=== PATIENT | female | born 1970 | race Caucasian/White ===

== ENCOUNTER 2016-10-30 14:12 | Inpatient (IN) | payer OTHER ==
[2016-10-30] MEDS ORDERED: ONDANSETRON 4 MG/2 ML VIAL IVP STA ×2 (14:28→15:27)
[2016-10-30] MEDS ORDERED: SODIUM CHLORIDE 0.9% 1,000 ML IV STA (14:28)
[2016-10-30 14:47] LABS: Basophils % (A) 0 %; CH 34.3; Eosinophils # (A) 0.1 k/uL (0-0.7); Eosinophils % (A) 1 %; HCT 50.7 % (34.0-46.0); HDW 2.48; HGB 17.2 gm/dL (11.4-16.0); Luc # (Auto) 0.09; Luc % (Auto) 1; Lymphocytes % (A) 26 %; MCH 33.4 pg (25.0-35.0); MCHC 33.9 g/dL (31.0-37.0); MCV 98.5 fL (80.0-100.0); Monocytes # (A) 0.3 k/uL (0-1.0); Monocytes % (A) 4 %; Neutrophils # (A) 5.2 k/uL (1.3-7.7); Neutrophils % (A) 68 %; RBC 5.15 m/uL (3.80-5.40); RDW 13.8 % (11.5-15.5); WBC 7.7 k/uL (3.8-10.6)
[2016-10-30 14:57] LABS: ALT 22 U/L (9-52); AST 19 U/L (14-36); Alkaline Phosphatase 90 U/L (38-126); Anion Gap 14 mmol/L; Blood Urea Nitrogen 9 mg/dL (7-17); Calcium 9.8 mg/dL (8.4-10.2); Carbon Dioxide 19 mmol/L (22-30); Chloride 106 mmol/L (98-107); Glucose 106 mg/dL (74-99); Non-African American GFR(MDRD) >60 (>60 ml/min/1.73 sqM); Potassium 3.8 mmol/L (3.5-5.1); Sodium 139 mmol/L (137-145); Total Bilirubin 0.8 mg/dL (0.2-1.3)
--- NOTE | 2016-10-30 15:45 | ED ---
General Adult HPI - General Chief complaint: Nausea/Vomiting/Diarrhea Stated complaint: Weakness Time Seen by Provider: 10/30/16 14:19 Source: patient, RN notes reviewed Mode of arrival: wheelchair Limitations: no limitations - History of Present Illness Initial comments: 45-year-old female presents with a 2 day history of nausea and vomiting. Patient reports 3 episodes of nonbloody emesis yesterday, patient states she was well after these episodes. Then she had an additional 3-5 episodes of nonbloody vomiting today with significant dry heaving. She denies fever or chills. Denies abdominal pain. Denies chest pain or shortness of breath. Denies any known sick contacts. Denies any suspicious food ingestion. She denies alcohol consumption. She admits to occasional marijuana use. She is not currently on any medication. - Related Data Home Medications Medication Instructions Recorded Confirmed Cholecalciferol [Vitamin D3] 1,000 unit PO DAILY 10/30/16 10/30/16 Magnesium Oxide [Mag-Ox] 400 mg PO DAILY 10/30/16 10/30/16 Allergies Allergy/AdvReac Type Severity Reaction Status Date / Time No Known Allergies Allergy Verified 10/30/16 14:40 Review of Systems ROS Statement: Those systems with pertinent positive or pertinent negative responses have been documented in the HPI. ROS Other: All systems not noted in ROS Statement are negative. Constitutional: Denies: fever, chills Respiratory: Denies: cough Cardiovascular: Denies: chest pain Gastrointestinal: Reports: nausea, vomiting. Denies: abdominal pain, diarrhea Past Medical History Past Medical History: No Reported History History of Any Multi-Drug Resistant Organisms: None Reported Past Surgical History: Section Additional Past Surgical History / Comment(s): c section x 3 Past Psychological History: No Psychological Hx Reported Smoking Status: Current every day smoker Past Alcohol Use History: None Reported Past Drug Use History: Marijuana General Exam Limitations: no limitations General appearance: alert, in distress Head exam: Present: atraumatic, normocephalic Eye exam: Present: PERRL, EOMI, other ENT exam: Present: other (Dentition) Neck exam: Present: full ROM. Absent: meningismus Respiratory exam: Present: normal lung sounds bilaterally. Absent: respiratory distress Cardiovascular Exam: Present: normal rhythm, bradycardia GI/Abdominal exam: Present: soft, tenderness (Minimal right upper quadrant tenderness), normal bowel sounds. Absent: distended, guarding, rebound Rectal exam: Present: deferred Extremities exam: Present: normal inspection Neurological exam: Present: alert, oriented X3 Psychiatric exam: Present: normal affect, normal mood Skin exam: Present: warm, diaphoretic Course Vital Signs 10/30/16 10/30/16 14:15 15:47 Temperature 96.9 F L Pulse Rate 90 65 Respiratory 18 18 Rate Blood Pressure 167/85 181/84 O2 Sat by Pulse 98 97 Oximetry - Reevaluation(s) Reevaluation #1: 10/30/16 17:11 Patient is reevaluated multiple times on the emergency department. She has persistent nausea and vomiting. She is given multiple doses of IV antiemetics. Reevaluation #2: 10/30/16 17:12 Ultrasound of the abdomen is reviewed and shows mild thickening of the gallbladder wall with cholelithiasis. There is no pericholecystic fluid. Interpretation is significant for possible acute cholecystitis. EKG Findings - EKG Comments: EKG Findings:: EKG obtained at 1455 shows sinus bradycardia with sinus arrhythmia. Ventricular rate of 55, purulent 60, QRS duration 78, QTC is 451, there is inverted T waves in V2 and V3. No ST segment elevation or depression. Medical Decision Making - Medical Decision Making For social female with no significant past medical history presenting with a 2 day history of nausea and vomiting. On examination patient does have minimal tenderness to palpation in the right upper quadrant, no rebound or guarding. Patient has significant nausea vomiting while in the emergency department and receives multiple doses of antiemetics. Ultrasound is concerning for acute cholecystitis. Case is discussed with general surgery who accepts the admission. Patient will be given IV antibiotics,, npo, and IV fluids. She will likely be scheduled for cholecystectomy tomorrow. Laboratory studies revealed mild elevation of lactic acidosis of 2.4. AST and LTR within normal limits with blood cell count is not elevated at 7.7. All of the labs are unremarkable. Coagulation studies and type and screen are pending at the time of this dictation. Abdominal x-ray is also pending at the time of this dictation. Diagnosis: Acute cholecystitis - Lab Data Result diagrams: 10/30/16 14:25 10/30/16 14:25 Lab Results 06/28/17 06/28/17 06/28/17 Range/Units 14:25 14:25 14:25 WBC 7.7 (3.8-10.6) k/uL RBC 5.15 (3.80-5.40) m/uL Hgb 17.2 H (11.4-16.0) gm/dL Hct 50.7 H (34.0-46.0) % MCV 98.5 (80.0-100.0) fL MCH 33.4 (25.0-35.0) pg MCHC 33.9 (31.0-37.0) g/dL RDW 13.8 (11.5-15.5) % Plt Count 246 (150-450) k/uL Neutrophils % 68 % Lymphocytes % 26 % Monocytes % 4 % Eosinophils % 1 % Basophils % 0 % Neutrophils # 5.2 (1.3-7.7) k/uL Lymphocytes # 2.0 (1.0-4.8) k/uL Monocytes # 0.3 (0-1.0) k/uL Eosinophils # 0.1 (0-0.7) k/uL Basophils # 0.0 (0-0.2) k/uL Sodium 139 (137-145) mmol/L Potassium 3.8 (3.5-5.1) mmol/L Chloride 106 (98-107) mmol/L Carbon Dioxide 19 L (22-30) mmol/L Anion Gap 14 mmol/L BUN 9 (7-17) mg/dL Creatinine 0.98 (0.52-1.04) mg/dL Est GFR (MDRD) Af Amer >60 (>60 ml/min/1.73 sqM) Est GFR (MDRD) Non-Af >60 (>60 ml/min/1.73 sqM) Glucose 106 H (74-99) mg/dL Plasma Lactic Acid Efrain (0.7-2.0) mmol/L Calcium 9.8 (8.4-10.2) mg/dL Magnesium 2.0 (1.6-2.3) mg/dL Total Bilirubin 0.8 (0.2-1.3) mg/dL AST 19 (14-36) U/L ALT 22 (9-52) U/L Alkaline Phosphatase 90 (38-126) U/L Troponin I <0.012 (0.000-0.034) ng/mL Total Protein 8.0 (6.3-8.2) g/dL Albumin 4.9 (3.5-5.0) g/dL Lipase 86 (23-300) U/L 10/30/16 Range/Units 14:25 WBC (3.8-10.6) k/uL RBC (3.80-5.40) m/uL Hgb (11.4-16.0) gm/dL Hct (34.0-46.0) % MCV (80.0-100.0) fL MCH (25.0-35.0) pg MCHC (31.0-37.0) g/dL RDW (11.5-15.5) % Plt Count (150-450) k/uL Neutrophils % % Lymphocytes % % Monocytes % % Eosinophils % % Basophils % % Neutrophils # (1.3-7.7) k/uL Lymphocytes # (1.0-4.8) k/uL Monocytes # (0-1.0) k/uL Eosinophils # (0-0.7) k/uL Basophils # (0-0.2) k/uL Sodium (137-145) mmol/L Potassium (3.5-5.1) mmol/L Chloride (98-107) mmol/L Carbon Dioxide (22-30) mmol/L Anion Gap mmol/L BUN (7-17) mg/dL Creatinine (0.52-1.04) mg/dL Est GFR (MDRD) Af Amer (>60 ml/min/1.73 sqM) Est GFR (MDRD) Non-Af (>60 ml/min/1.73 sqM) Glucose (74-99) mg/dL Plasma Lactic Acid Efrain 2.4 H* (0.7-2.0) mmol/L Calcium (8.4-10.2) mg/dL Magnesium (1.6-2.3) mg/dL Total Bilirubin (0.2-1.3) mg/dL AST (14-36) U/L ALT (9-52) U/L Alkaline Phosphatase (38-126) U/L Troponin I (0.000-0.034) ng/mL Total Protein (6.3-8.2) g/dL Albumin (3.5-5.0) g/dL Lipase (23-300) U/L Disposition Clinical Impression: Cholecystitis with cholelithiasis Disposition: ADMITTED IP TO THIS [facility] Condition: Stable Referrals: Jan Cheek MD [Primary Care Provider] - 1-2 days Decision to Admit Reason: Admit from EC Decision Date: 10/30/16 Decision Time: 17:00
--- NOTE | 2016-10-30 16:53 | US ---
EXAMINATION TYPE: US abdomen complete DATE OF EXAM: 10/30/2016 COMPARISON: NONE CLINICAL HISTORY: Pain. EXAM MEASUREMENTS: Liver Length: 14.2 cm Gallbladder Wall: 0.3 cm CBD: 0.7 cm Spleen: 10.0 cm Right Kidney: 8.5 x 3.2 x 4.8 cm Left Kidney: 8.8 x 4.2 x 5.0 cm Pancreas: not well delineated Liver: 3 small hemangiomas seen: lt lobe 1.2 x 0.9 x 1.0 cm; right lobe 1.4 x 1.2 x 1.7 cm and possi ble third at ligamentum teres ( 1.9 cm) Gallbladder:stones, air in gb wall Evidence for sonographic Joiner's sign: Unable to determine, patient has intractible vomiting and hurts all over CBD: dilated Spleen: wnl Right Kidney: No hydronephrosis or masses seen Left Kidney: No hydronephrosis or masses seen Upper IVC: wnl Abd Aorta: wnl The liver demonstrates several hyperechoic lesions which may reflect hemangiomas. The intrahepatic po rtion of the IVC and proximal abdominal aorta are within normal limits. There is evidence of cholelit hiasis with a mild bladder wall thickening. Suggestion of intramural air. Correlate for acute cholecy stitis. Common bile duct is mildly dilated. The visualized portions of the pancreas are homogenous. The spleen is unremarkable. Kidneys are symmetric and free of hydronephrosis. No renal lesions are seen. IMPRESSION: 1. I cannot exclude acute cholecystitis. 2. Hepatic hemangiomas.
[2016-10-30] MEDS ORDERED: metroNIDAZOLE-NS PMX 500 MG in SALINE 1 100ML.BAG IVPB STA (16:57)
[2016-10-30] MEDS ORDERED: METOCLOPRAMIDE 5 MG/ML 2 ML VIAL IVP STA (16:58)
[2016-10-30] MEDS ORDERED: HYDROmorphone 1 MG/ML 1 ML SYRINGE IVP STA (16:58)
[2016-10-30] MEDS ORDERED: LACTATED RINGERS 1,000 ML IV ONE (16:59)
[2016-10-30] MEDS ORDERED: HYDROmorphone 1 MG/ML 1 ML SYRINGE IV PRN (17:17)
[2016-10-30] MEDS ORDERED: NALOXONE 0.4 MG/ML 1 ML VIAL IV PRN (17:17)
--- NOTE | 2016-10-30 18:27 | XR ---
EXAMINATION TYPE: XR abdomen complete w decub DATE OF EXAM: 10/30/2016 COMPARISON: EXAMINATION TYPE: XR abdomen complete w decub DATE OF EXAM: 10/30/2016 COMPARISON: NONE HISTORY: Vomiting TECHNIQUE: 4 views FINDINGS: There is no sign of intestinal obstruction or pneumoperitoneum. Fecal pattern is normal. Th ere is no evidence of a mass. There is a phlebolith in the pelvis on the left side. There are no path ologic calcifications over the kidneys. Lung bases are clear. IMPRESSION: Nonacute abdomen. HISTORY: TECHNIQUE: Supine, upright, and left side down lateral decubitus views of the abdomen are obtained. FINDINGS: There is no evidence for pneumoperitoneum. The bowel gas pattern is unremarkable as there is air throughout nondilated small and large bowel. No sizeable air fluid levels. No mass effects are seen. No unusual calcifications. IMPRESSION: Unremarkable study
[2016-10-30 18:57] VITALS: BMI 24.4
[2016-10-30 19:40] LABS: Amorphous Sediment,Urine Rare /hpf; Appearance,Urine Turbid (Clear); Bacteria,Urine Moderate /hpf; Bilirubin,Urine Negative (Negative); Glucose,Urine (UA) 1+ (Negative); Leukocyte Esterase,Urine Negative (Negative); Mucus,Urine Rare /hpf; Nitrite,Urine Negative (Negative); Particle Count 30703; Protein,Urine 1+ (Negative); RBC,Urine 5 /hpf (0-5); Specific Gravity,Urine 1.013 (1.001-1.035); Squamous Epithelial Cell,Urine 2 /hpf (0-4); UA Billing (MACRO vs. MICRO) MICRO; Urobilinogen,Urine <2.0 mg/dL (<2.0); WBC,Urine 4 /hpf (0-5)
[2016-10-30 19:47] LABS: Ketones,Urine 4+ (Negative)
[2016-10-30] MEDS: ONDANSETRON 4 MG/2 ML VIAL IVP PRN (20:26)
[2016-10-30 20:52] LABS: INR 1.1 (<1.1); Partial Thromboplastin Time 23.2 sec (22.0-30.0); Prothrombin Time 11.2 sec (9.0-12.0)
[2016-10-31] MEDS: METOCLOPRAMIDE 5 MG/ML 2 ML VIAL IVP PRN ×2 (01:27→17:29)
[2016-10-31] MEDS: ONDANSETRON 4 MG/2 ML VIAL IVP PRN ×3 (04:07→20:47)
[2016-10-31 06:59] LABS: Basophils % (A) 0 %; CH 33.8; CHCM 34.6; Eosinophils % (A) 0 %; HCT 47.3 % (34.0-46.0); HDW 2.57; HGB 16.6 gm/dL (11.4-16.0); Luc # (Auto) 0.06; Luc % (Auto) 1; Lymphocytes # (A) 0.9 k/uL (1.0-4.8); Lymphocytes % (A) 8 %; MCH 34.4 pg (25.0-35.0); MCHC 35.2 g/dL (31.0-37.0); MCV 97.9 fL (80.0-100.0); Monocytes # (A) 0.5 k/uL (0-1.0); Monocytes % (A) 5 %; Neutrophils % (A) 87 %; RBC 4.83 m/uL (3.80-5.40); RDW 13.6 % (11.5-15.5); WBC 11.5 k/uL (3.8-10.6); WBC (Perox) 11.93
[2016-10-31 07:23] LABS: ALT 22 U/L (9-52); AST 18 U/L (14-36); Alkaline Phosphatase 82 U/L (38-126); Anion Gap 17 mmol/L; Blood Urea Nitrogen 11 mg/dL (7-17); Calcium 9.8 mg/dL (8.4-10.2); Carbon Dioxide 18 mmol/L (22-30); Chloride 105 mmol/L (98-107); Glucose 131 mg/dL (74-99); Non-African American GFR(MDRD) 58 (>60 ml/min/1.73 sqM); Potassium 4.2 mmol/L (3.5-5.1); Sodium 140 mmol/L (137-145); Total Bilirubin 0.8 mg/dL (0.2-1.3); Total Protein 7.7 g/dL (6.3-8.2)
[2016-10-31] MEDS: PANTOPRAZOLE 40 MG/10 ML VIAL IV SCH (08:17)
--- NOTE | 2016-10-31 08:56 | P.GSHP ---
History of Present Illness H&P Date: 10/31/16 Chief Complaint: Abdominal pain, nausea, vomiting The patient began having problems with nausea and vomiting came into the emergency department And workup showed evidence of gallbladder disease. She has had episodes of this in the Past however not as severe. No fevers or chills. No Jaundice or tea-colored urine. No blood in the stools or dark tarry stools - Review of Systems All systems: negative Past Medical History Past Medical History: No Reported History History of Any Multi-Drug Resistant Organisms: None Reported Past Surgical History: Section Additional Past Surgical History / Comment(s): c section x 3 Past Psychological History: No Psychological Hx Reported Smoking Status: Current every day smoker Past Alcohol Use History: None Reported Past Drug Use History: Marijuana - Past Family History Father Family Medical History: Hypertension Mother Additional Family Medical History / Comment(s): at age 26 brain aneurism Medications and Allergies Home Medications Medication Instructions Recorded Confirmed Type Cholecalciferol [Vitamin D3] 1,000 unit PO DAILY 10/30/16 10/30/16 History Magnesium Oxide [Mag-Ox] 400 mg PO DAILY 10/30/16 10/30/16 History Allergies Allergy/AdvReac Type Severity Reaction Status Date / Time No Known Allergies Allergy Verified 10/30/16 14:40 Surgical - Exam Osteopathic Statement: *. No significant issues noted on an osteopathic structural exam other than those noted in the History and Physical/Consult. Vital Signs Pulse Resp BP Pulse Ox 90 18 167/85 98 10/30/16 14:15 10/30/16 14:15 10/30/16 14:15 10/30/16 14:15 - General well developed, well nourished, no distress - Eyes normal ocular movement - ENT normal pinna, normal nares - Neck trachea midline - Respiratory normal expansion, clear to auscultation - Cardiovascular Rhythm: regular Abnormal Heart Sounds: no systolic murmur - Abdomen Abdomen: soft, tender (Mild right upper quadrant), no organomegaly, surgical scars (Lower midline), no rigid, no rebound - Psychiatric oriented to time, oriented to person, oriented to place, speech is normal, memory intact Results - Labs 10/31/16 06:17 10/31/16 06:17 Abnormal Lab Results - Last 24 Hours (Table) 10/30/16 10/30/16 10/30/16 Range/Units 14:25 14:25 14:25 WBC (3.8-10.6) k/uL Hgb 17.2 H (11.4-16.0) gm/dL Hct 50.7 H (34.0-46.0) % Neutrophils # (1.3-7.7) k/uL Lymphocytes # (1.0-4.8) k/uL Carbon Dioxide 19 L (22-30) mmol/L Glucose 106 H (74-99) mg/dL Plasma Lactic Acid Efrain 2.4 H* (0.7-2.0) mmol/L Urine Appearance (Clear) Urine Protein (Negative) Urine Glucose (UA) (Negative) Urine Ketones (Negative) Urine Blood (Negative) Amorphous Sediment (None) /hpf Urine Bacteria (None) /hpf Urine Mucus (None) /hpf 10/30/16 10/31/16 10/31/16 Range/Units 18:41 06:17 06:17 WBC 11.5 H (3.8-10.6) k/uL Hgb 16.6 H (11.4-16.0) gm/dL Hct 47.3 H (34.0-46.0) % Neutrophils # 10.0 H (1.3-7.7) k/uL Lymphocytes # 0.9 L (1.0-4.8) k/uL Carbon Dioxide 18 L (22-30) mmol/L Glucose 131 H (74-99) mg/dL Plasma Lactic Acid Efrain (0.7-2.0) mmol/L Urine Appearance Turbid H (Clear) Urine Protein 1+ H (Negative) Urine Glucose (UA) 1+ H (Negative) Urine Ketones 4+ H (Negative) Urine Blood Small H (Negative) Amorphous Sediment Rare H (None) /hpf Urine Bacteria Moderate H (None) /hpf Urine Mucus Rare H (None) /hpf Diabetes panel 10/30/16 10/31/16 Range/Units 14:25 06:17 Sodium 139 140 (137-145) mmol/L Potassium 3.8 4.2 (3.5-5.1) mmol/L Chloride 106 105 (98-107) mmol/L Carbon Dioxide 19 L 18 L (22-30) mmol/L BUN 9 11 (7-17) mg/dL Creatinine 0.98 1.02 (0.52-1.04) mg/dL Glucose 106 H 131 H (74-99) mg/dL Calcium 9.8 9.8 (8.4-10.2) mg/dL AST 19 18 (14-36) U/L ALT 22 22 (9-52) U/L Alkaline Phosphatase 90 82 (38-126) U/L Total Protein 8.0 7.7 (6.3-8.2) g/dL Albumin 4.9 4.7 (3.5-5.0) g/dL Calcium panel 10/30/16 10/31/16 Range/Units 14:25 06:17 Calcium 9.8 9.8 (8.4-10.2) mg/dL Albumin 4.9 4.7 (3.5-5.0) g/dL Pituitary panel 10/30/16 10/31/16 Range/Units 14:25 06:17 Sodium 139 140 (137-145) mmol/L Potassium 3.8 4.2 (3.5-5.1) mmol/L Chloride 106 105 (98-107) mmol/L Carbon Dioxide 19 L 18 L (22-30) mmol/L BUN 9 11 (7-17) mg/dL Creatinine 0.98 1.02 (0.52-1.04) mg/dL Glucose 106 H 131 H (74-99) mg/dL Calcium 9.8 9.8 (8.4-10.2) mg/dL Adrenal panel 10/30/16 10/31/16 Range/Units 14:25 06:17 Sodium 139 140 (137-145) mmol/L Potassium 3.8 4.2 (3.5-5.1) mmol/L Chloride 106 105 (98-107) mmol/L Carbon Dioxide 19 L 18 L (22-30) mmol/L BUN 9 11 (7-17) mg/dL Creatinine 0.98 1.02 (0.52-1.04) mg/dL Glucose 106 H 131 H (74-99) mg/dL Calcium 9.8 9.8 (8.4-10.2) mg/dL Total Bilirubin 0.8 0.8 (0.2-1.3) mg/dL AST 19 18 (14-36) U/L ALT 22 22 (9-52) U/L Alkaline Phosphatase 90 82 (38-126) U/L Total Protein 8.0 7.7 (6.3-8.2) g/dL Albumin 4.9 4.7 (3.5-5.0) g/dL - Imaging US - abdomen: report reviewed Assessment and Plan (1) Cholecystitis with cholelithiasis Status: Acute Plan: Plan is laparoscopic cholecystectomy possible open. The procedure, risks, complications were discussed with her. Questions were encouraged and answered. We'll proceed with laparoscopic Cholecystectomy this afternoon.
[2016-10-31] MEDS ORDERED: IV FLUID CONTINUATION 850 ML IV ONE (12:32)
[2016-10-31] MEDS ORDERED: SUCCINYLCHOLINE CHLORIDE 100 MG/5 ML SYR IV ONE (13:47)
[2016-10-31] MEDS ORDERED: MIDAZOLAM 2 MG/2 ML VIAL ONE (13:47)
[2016-10-31] MEDS ORDERED: GLYCOPYRROLATE 0.2 MG/ML 2 ML VIAL ONE (13:47)
[2016-10-31] MEDS ORDERED: LABETALOL 5 MG/ML VIAL MDV ONE (13:47)
[2016-10-31] MEDS ORDERED: PROPOFOL 10 MG/ML 20 ML VIAL IV ONE (13:47)
[2016-10-31] MEDS ORDERED: fentaNYL (PF) 50 MCG/ML 2 ML AMP ONE (13:47)
[2016-10-31] MEDS ORDERED: NEOSTIGMINE 1 MG/ML 10 ML VIAL ONE (13:47)
[2016-10-31] MEDS ORDERED: KETOROLAC 30 MG/ML 1 ML VIAL ONE (13:47)
[2016-10-31] MEDS ORDERED: ROCURONIUM BROMIDE 10 MG/ML 10 ML VIAL IV ONE (13:47)
[2016-10-31] MEDS ORDERED: LIDOCAINE 1% INJ 10MG/ML (20 ML MDV) ONE (13:47)
[2016-10-31] MEDS ORDERED: BUPIVACAIN-EPI 0.5%-1:200,000 30 ML VIAL SQ ONE (14:09)
[2016-10-31] MEDS ORDERED: HYDROcodone/APAP 5-325MG 1 EACH TAB PO PRN (14:35)
--- NOTE | 2016-10-31 14:35 | P.OP ---
Date of Procedure: 10/31/16 Preoperative Diagnosis: cholecystitis with cholelithiasis Postoperative Diagnosis: Same Procedure(s) Performed: Laparoscopic cholecystectomy Implants: Anesthesia: JUANIS Surgeon: Shirlene Bonilla Estimated Blood Loss (ml): 5 Pathology: other (Gallbladder) Condition: stable Disposition: PACU Indications for Procedure: The patient presented with acute abdominal pain. Ultrasound showed cholelithiasis with possible gallbladder wall thickening or intramural air. Operative Findings: No evidence of acute cholecystitis Description of Procedure: The patient is taken to the operative suite where she is prepped and draped in the usual sterile manner under a general endotracheal anesthetic. An infraumbilical incision is made. The fascia is grasped and incised. The peritoneum is grasped and incised. A finger sweep was carried out. There is some filmy adhesions of the omentum to the posterior peritoneum. Trocar is then inserted. Pneumoperitoneum was established with CO2 gas. Sites are chosen for accessory trochars needs are placed through small skin incisions. The abdominal and pelvic contents were examined with findings as described above. The fundus of the gallbladder is grasped and retracted superiorly. Lety's pouch is grasped and retracted laterally. The cystic artery and cystic duct are dissected free. They're triply clipped and cut. The gallbladder is dissected free from the liver bed. Small bleeding points were controlled with electrocautery. The gallbladder is removed through the umbilical port site. The liver bed is reexamined and noted to be hemostatic. The pneumoperitoneum was released, the trochars are removed. The fascia at the umbilicus was closed with 0 Vicryl. The skin incisions were closed with 4-0 Vicryl in a subcuticular manner. Steri-Strips and dressings were applied. She tolerated the procedure without difficulty and was taken recovery room in satisfactory condition. According to or personnel all counts are correct.
[2016-10-31] MEDS: KETOROLAC 30 MG/ML 1 ML VIAL IVP SCH ×2 (17:14→20:46)
[2016-11-01] MEDS: METOCLOPRAMIDE 5 MG/ML 2 ML VIAL IVP PRN (01:03)
[2016-11-01] MEDS: KETOROLAC 30 MG/ML 1 ML VIAL IVP SCH ×2 (05:52→09:38)
[2016-11-01 07:28] VITALS: RESP 18
[2016-11-01] MEDS: ONDANSETRON 4 MG/2 ML VIAL IVP PRN (07:33)
[2016-11-01] MEDS: PANTOPRAZOLE 40 MG/10 ML VIAL IV SCH ×2 (09:40→10:55)
[2016-11-01] MEDS ORDERED: LOSARTAN-HCTZ 50-12.5 MG 1 EACH TAB PO SCH (12:15)
--- NOTE | 2016-11-01 12:23 | P.PN ---
Subjective The patient is POD #1 lap choley. Her BP has been elevated. She had some nausea this am. Mild incisional pain, Objective - Vital Signs Vital signs: Vital Signs Temp 97.8 F 11/01/16 07:20 Pulse 98 11/01/16 07:20 Resp 18 11/01/16 07:20 BP 180/92 11/01/16 07:20 Pulse Ox 96 11/01/16 02:14 Intake & Output 10/31/16 11/01/16 11/01/16 18:59 06:59 18:59 Intake Total 650 400 23 Output Total 10 480 Balance 640 400 -457 Weight 56.699 kg 56.699 kg 56.699 kg Intake: IV 650 23 Invasive Line 4 23 Intake, IV Titration 300 Amount Lactated Ringers 1,000 ml 300 @ 100 mls/hr IV .Q10H ONE Rx#:[id number] Oral 100 Output: Urine 480 Stool 0 Estimated Blood Loss 10 Other: Voiding Method Toilet Toilet # Voids 3 3 - Constitutional General appearance: Present: cooperative, no acute distress - Gastrointestinal General gastrointestinal: Present: normal bowel sounds, rigid Localized gastrointestinal: surgical scar: diffuse (band aids intact) - Labs CBC & Chem 7: 10/31/16 06:17 10/31/16 06:17 Assessment and Plan (1) Cholecystitis with cholelithiasis Status: Acute (2) Hypertension Status: Acute (3) Nausea Status: Acute Plan: Dr Hunter has been consulted regarding the BP. Continue antiemetics. Hopefully ready for discharge within the next day or so,.
--- NOTE | 2016-11-01 14:02 | XR ---
EXAMINATION TYPE: XR chest 2V DATE OF EXAM: 11/01/2016 COMPARISON: Prior chest x-ray 10/27/2010 HISTORY: Shortness of breath TECHNIQUE: Frontal and lateral views of the chest are obtained. FINDINGS: There is no focal air space opacity, pleural effusion, or pneumothorax seen. The cardiac silhouette size is within normal limits. The osseous structures are intact. Surgical clips in the r ight upper quadrant. IMPRESSION: No acute cardiopulmonary process.
--- NOTE | 2016-11-01 14:17 | P.CONS ---
History of Present Illness - Reason for Consult Consult date: 11/01/16 Hypertension - History of Present Illness This is a 45-year-old female patient of Dr. Cheek with a past medical history for restless leg syndrome. She denies any history of hypertension. She states she last saw Dr. Dudley 3 weeks ago. She states she started vomiting 2 days ago after she had lunch of spaghetti and she also had some some mild vomiting the day before which only lasted for an hour. On the subsequent episode, patient continued to have vomiting problems. She denied any pain. She states her stools are soft but no diarrhea. No excessive gas. Patient does have history of weight loss because she is not eating very much due to her port and dictation. She is planning to have teeth pulled and obtain dentures. Patient also has a history of snoring and has not had a sleep study done before. She is a smoker a pack per day for 30 years. 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 She does not have this in her family history.. She also states she has high triglycerides and is trying to improve this with diet with plan for recheck of her lab work in March. Patient has been admitted to the hospital on the care of Dr. Bonilla and underwent a laparoscopic cholecystectomy on October 31 and subsequently patient was having high blood pressure readings. We will plan to start the patient on losartan/ hydrochlorothiazide and give a prescription for home. Review of Systems All systems: negative Constitutional: Reports poor appetite, Reports weight loss, Denies chills, Denies chronic headaches, Denies chronic pain, Denies fatigue, Denies fever Eyes: denies blurred vision, denies pain Ears, nose, mouth and throat: Reports dental pain, Reports mouth pain, Denies headache, Denies sore throat Cardiovascular: Reports decreased exercise tolerance, Reports dyspnea on exertion, Denies chest pain, Denies edema, Denies leg edema, Denies shortness of breath Respiratory: Denies cough, Denies cough with sputum, Denies dyspnea, Denies excessive sputum, Denies hemoptysis, Denies home oxygen Gastrointestinal: Reports nausea, Reports vomiting, Denies abdominal pain, Denies diarrhea, Denies jaundice Genitourinary: Denies dysuria, Denies hematuria Musculoskeletal: Denies myalgias Integumentary: Denies pruritus, Denies rash Neurological: Denies numbness, Denies weakness Psychiatric: Denies anxiety, Denies depression Endocrine: Denies fatigue, Denies weight change Past Medical History Past Medical History: No Reported History Additional Past Medical History / Comment(s): Restless leg syndrome History of Any Multi-Drug Resistant Organisms: None Reported Past Surgical History: Section Additional Past Surgical History / Comment(s): c section x 3 Past Psychological History: No Psychological Hx Reported Smoking Status: Current every day smoker Past Alcohol Use History: None Reported Additional Past Alcohol Use History / Comment(s): Patient is a smoker of one pack per day for 30 years. She uses marijuana sometimes. Past Drug Use History: Marijuana - Past Family History Father Family Medical History: Hypertension Additional Family Medical History / Comment(s): Father is alive at age 69 with history of hypertension. Mother Additional Family Medical History / Comment(s): Mother at age 26 brain aneurysm. Brother(s) Additional Family Medical History / Comment(s): Patient has one brother with hypertension. Patient has 1 sister with no major medical problems. Medications and Allergies Home Medications Medication Instructions Recorded Confirmed Type Cholecalciferol [Vitamin D3] 1,000 unit PO DAILY 10/30/16 10/30/16 History Magnesium Oxide [Mag-Ox] 400 mg PO DAILY 10/30/16 10/30/16 History Allergies Allergy/AdvReac Type Severity Reaction Status Date / Time No Known Allergies Allergy Verified 10/30/16 14:40 Physical Exam Vitals: Vital Signs Temp Pulse Pulse Resp BP BP Pulse Ox 11/01/16 07:20 97.8 F 98 73 18 180/92 11/01/16 07:00 73 18 11/01/16 02:14 97.9 F 77 16 169/96 96 11/01/16 00:00 16 10/31/16 20:00 16 10/31/16 19:57 98.5 F 80 16 156/75 10/31/16 17:55 156/81 10/31/16 17:17 70 15 156/81 100 10/31/16 17:00 70 161/95 10/31/16 16:45 76 15 146/90 96 10/31/16 16:30 78 148/90 10/31/16 16:15 78 14 138/93 96 10/31/16 15:45 98.1 F 60 14 96 10/31/16 15:10 87 16 148/78 97 10/31/16 14:57 83 16 156/87 97 10/31/16 14:42 98.8 F 75 16 164/88 95 Intake and Output 10/31/16 11/01/16 11/01/16 22:59 06:59 14:59 Intake Total 400 100 23 Output Total 480 Balance 400 100 -457 Intake: IV 100 23 Invasive Line 4 23 Intake, IV Titration 300 Amount Lactated Ringers 1,000 ml 300 @ 100 mls/hr IV .Q10H ONE Rx#:[id number] Oral 100 0 Output: Urine 480 Stool 0 Other: Voiding Method Toilet Toilet # Voids 1 3 3 Weight 56.699 kg 56.699 kg Patient Weight 11/02/16 06:59 Weight 56.699 kg - Constitutional General appearance: average body habitus, cooperative, no acute distress - EENT Eyes: PERRLA ENT: no hard of hearing, normal oropharynx, no thrush, no tonsillar exudates, no tonsillar swelling - Neck Neck: no lymphadenopathy, normal ROM, no rigidity, no thyromegaly Carotids: bilateral: bruit absent Thyroid: bilateral: normal size - Respiratory Respiratory: bilateral: CTA - Cardiovascular Rhythm: regular Heart sounds: normal: S1, S2 Abnormal Heart Sounds: no systolic murmur, no diastolic murmur - Gastrointestinal General gastrointestinal: normal bowel sounds, soft, no tenderness - Integumentary Clubbing of all fingers bilaterally - Neurologic Neurologic: CNII-XII intact - Musculoskeletal Musculoskeletal: strength equal bilaterally - Psychiatric Psychiatric: A&O x's 3, appropriate affect, intact judgment & insight Results CBC & Chem 7: 10/31/16 06:17 10/31/16 06:17 Assessment and Plan Plan: 1. Cholecystitis and cholelithiasis status post laparoscopic cholecystectomy, stable. Continue current plan per general surgeon. 2. Hypertension with no previous diagnosis. Patient started on losartan/ hydrochlorothiazide 50/12.5 mg 1 daily. Patient instructed to follow-up with Dr. Dudley in one week to have blood pressure rechecked. 3. Hypertrophic osteoarthropathy rule out underlying pulmonary, cardiac hepatic or and intestinal disease. Would recommend outpatient CAT scan for evaluation. Chest x-ray has been ordered. 4. Family history with mom dying of a brain aneurysm. Patient should undergo MRI of the brain to rule out aneurysm. 5. Rule out obstructive sleep apnea. Patient may benefit from outpatient sleep study. 6. Hypertriglyceridemia. Patient to follow-up with repeat blood work in March. 7. Restless leg syndrome, stable. 8. Tobacco use and dependence. Smoking cessation. Discharge plan: Home today Impression and plan of care have been directed as dictated by the signing physician. Loly Arnold nurse practitioner acting as scribe for signing physician.
[2016-11-01 14:30] VITALS: BP 171/84; PULSE 83; TEMP 98.4
[2016-11-02] MEDS ORDERED: PANTOPRAZOLE 40 MG TABLET PO SCH (09:00)
== END 2016-11-01 15:28 | disposition home or self-care (01) | DRG 419 ==
LOC: EC 14:12 → 3SUR 17:17
PROVIDERS: ADMIT Surgery; ATTEND Surgery
PROC: 0FT44ZZ Resection of Gallbladder, Percutaneous Endoscopic Approach (ICD-10-PCS; principal; 2016-10-31 07:30)
DX: K80.10 Calculus of gallbladder with chronic cholecystitis without obstruction (principal); I10 Essential (primary) hypertension; M19.049 Primary osteoarthritis, unspecified hand; G25.81 Restless legs syndrome; E78.1 Pure hyperglyceridemia; F17.200 Nicotine dependence, unspecified, uncomplicated; Z79.899 Other long term (current) drug therapy
CPT/HCPCS: 36415; 71020; 74020; 76700; 80053; 81001; 81025; 83605; 83690; 83735; 84484; 85025; 85610; 85730; 88304; 93005; 96361; 96365; 96375; 96376; 99285

== ENCOUNTER 2016-11-03 14:01 | Emergency (ER) | payer OTHER ==
[2016-11-03] MEDS ORDERED: ONDANSETRON 4 MG/2 ML VIAL IVP STA (14:28)
[2016-11-03] MEDS ORDERED: SODIUM CHLORIDE 0.9% 1,000 ML IV STA ×2 (14:28→15:40)
[2016-11-03] MEDS ORDERED: FAMOTIDINE 20 MG/2 ML VIAL IV STA (14:29)
--- NOTE | 2016-11-03 14:32 | ED ---
General Adult HPI - General Chief complaint: Nausea/Vomiting/Diarrhea Stated complaint: post gallbladder surgery-vomiting Time Seen by Provider: 11/03/16 14:19 Source: patient, RN notes reviewed Mode of arrival: wheelchair Limitations: no limitations - History of Present Illness Initial comments: Patient is a pleasant 45-year-old female presenting to the emergency Department with nausea vomiting. Patient came to the hospital 4 days ago. Patient had nausea and vomiting and abdominal pain. Patient had her gallbladder surgically removed the next day. Patient has had persistent nausea and vomiting since that time. Patient has abdominal discomfort only with nausea. No fevers. No constipation or diarrhea. No dysuria. Patient denies any significant abdominal discomfort at this time and does not feel she needs pain medicine. - Related Data Home Medications Medication Instructions Recorded Confirmed Cholecalciferol [Vitamin D3] 1,000 unit PO DAILY 10/30/16 11/03/16 Magnesium Oxide [Mag-Ox] 400 mg PO DAILY 10/30/16 11/03/16 Ibuprofen [Motrin] 800 mg PO Q6H PRN 11/03/16 11/03/16 Losartan-Hctz 50-12.5 mg [Hyzaar 1 tab PO DAILY 11/03/16 11/03/16 50-12.5] Previous Rx's Medication Instructions Recorded HYDROcodone/APAP 5-325MG [Hegins 1 - 2 tab PO Q4H PRN #30 tab 10/31/16 5-325] Ondansetron Odt [Zofran Odt] 4 mg PO Q8HR PRN #10 tab 11/03/16 Allergies Allergy/AdvReac Type Severity Reaction Status Date / Time No Known Allergies Allergy Verified 11/03/16 14:39 Review of Systems ROS Statement: Those systems with pertinent positive or pertinent negative responses have been documented in the HPI. ROS Other: All systems not noted in ROS Statement are negative. Constitutional: Denies: fever Eyes: Denies: eye pain ENT: Denies: ear pain Respiratory: Denies: cough Cardiovascular: Denies: chest pain Endocrine: Denies: fatigue Gastrointestinal: Reports: nausea, vomiting. Denies: diarrhea Genitourinary: Denies: dysuria Musculoskeletal: Denies: back pain Skin: Denies: rash Neurological: Denies: weakness Past Medical History Past Medical History: No Reported History Additional Past Medical History / Comment(s): Restless leg syndrome History of Any Multi-Drug Resistant Organisms: None Reported Past Surgical History: Section Additional Past Surgical History / Comment(s): c section x 3 Past Psychological History: No Psychological Hx Reported Smoking Status: Current every day smoker Past Alcohol Use History: None Reported Past Drug Use History: Marijuana - Past Family History Father Family Medical History: Hypertension Additional Family Medical History / Comment(s): Father is alive at age 69 with history of hypertension. Mother Additional Family Medical History / Comment(s): Mother at age 26 brain aneurysm. Brother(s) Additional Family Medical History / Comment(s): Patient has one brother with hypertension. Patient has 1 sister with no major medical problems. General Exam Limitations: no limitations General appearance: alert, in no apparent distress Head exam: Present: atraumatic Eye exam: Present: normal appearance, PERRL ENT exam: Present: normal oropharynx Neck exam: Present: normal inspection Respiratory exam: Present: normal lung sounds bilaterally Cardiovascular Exam: Present: regular rate, normal rhythm Expanded Peripheral pulses: 2+: Dorsalis Pedis (R), Dorsalis Pedis (L) GI/Abdominal exam: Present: soft, other (Incisions are clean and dry and intact. ). Absent: distended, tenderness, guarding, rebound, rigid Extremities exam: Present: normal inspection. Absent: pedal edema, calf tenderness Neurological exam: Present: alert Psychiatric exam: Present: normal affect, normal mood Skin exam: Present: normal color Course Vital Signs 11/03/16 11/03/16 11/03/16 14:10 15:35 15:53 Temperature 97.8 F 99.2 F Pulse Rate 99 88 77 Respiratory 20 16 16 Rate Blood Pressure 159/88 154/80 154/82 O2 Sat by Pulse 99 98 Oximetry 11/03/16 11/03/16 16:09 17:44 Temperature 98.8 F Pulse Rate 82 74 Respiratory 18 16 Rate Blood Pressure 152/88 180/83 O2 Sat by Pulse 99 97 Oximetry - Reevaluation(s) Reevaluation #1: 11/03/16 18:18 Patient again reexamined and is starting to feel better. Abdomen remained soft and nontender. Patient is comfortable with discharge home as is . Case was discussed in detail with Dr. Bonilla who is okay with discharge of patient. Medical Decision Making - Lab Data Result diagrams: 11/03/16 14:38 11/03/16 14:38 Lab Results 11/03/16 11/03/16 11/03/16 Range/Units 14:38 14:38 14:38 WBC 12.4 H (3.8-10.6) k/uL RBC 5.48 H (3.80-5.40) m/uL Hgb 18.7 H (11.4-16.0) gm/dL Hct 51.3 H (34.0-46.0) % MCV 93.6 (80.0-100.0) fL MCH 34.1 (25.0-35.0) pg MCHC 36.5 (31.0-37.0) g/dL RDW 13.6 (11.5-15.5) % Plt Count 266 (150-450) k/uL Neutrophils % 76 % Lymphocytes % 17 % Monocytes % 5 % Eosinophils % 0 % Basophils % 0 % Neutrophils # 9.4 H (1.3-7.7) k/uL Lymphocytes # 2.1 (1.0-4.8) k/uL Monocytes # 0.6 (0-1.0) k/uL Eosinophils # 0.1 (0-0.7) k/uL Basophils # 0.0 (0-0.2) k/uL PT 11.5 (9.0-12.0) sec INR 1.2 (<1.1) APTT 24.1 (22.0-30.0) sec Sodium 134 L (137-145) mmol/L Potassium 3.5 (3.5-5.1) mmol/L Chloride 91 L (98-107) mmol/L Carbon Dioxide 23 (22-30) mmol/L Anion Gap 20 mmol/L BUN 29 H (7-17) mg/dL Creatinine 1.21 H (0.52-1.04) mg/dL Est GFR (MDRD) Af Amer 58 (>60 ml/min/1.73 sqM) Est GFR (MDRD) Non-Af 48 (>60 ml/min/1.73 sqM) Glucose 94 (74-99) mg/dL Calcium 10.5 H (8.4-10.2) mg/dL Total Bilirubin 1.4 H (0.2-1.3) mg/dL AST 68 H (14-36) U/L ALT 80 H (9-52) U/L Alkaline Phosphatase 100 (38-126) U/L Total Protein 8.0 (6.3-8.2) g/dL Albumin 4.8 (3.5-5.0) g/dL Amylase 93 (30-110) U/L Lipase 81 (23-300) U/L Urine Color Urine Appearance (Clear) Urine pH (5.0-8.0) Ur Specific [place] (1.001-1.035) Urine Protein (Negative) Urine Glucose (UA) (Negative) Urine Ketones (Negative) Urine Blood (Negative) Urine Nitrite (Negative) Urine Bilirubin (Negative) Urine Urobilinogen (<2.0) mg/dL Ur Leukocyte Esterase (Negative) Urine RBC (0-5) /hpf Urine WBC (0-5) /hpf Ur Squamous Epith Cells (0-4) /hpf Urine Bacteria (None) /hpf Hyaline Casts (0-2) /lpf Urine Mucus (None) /hpf 11/03/16 Range/Units 15:14 WBC (3.8-10.6) k/uL RBC (3.80-5.40) m/uL Hgb (11.4-16.0) gm/dL Hct (34.0-46.0) % MCV (80.0-100.0) fL MCH (25.0-35.0) pg MCHC (31.0-37.0) g/dL RDW (11.5-15.5) % Plt Count (150-450) k/uL Neutrophils % % Lymphocytes % % Monocytes % % Eosinophils % % Basophils % % Neutrophils # (1.3-7.7) k/uL Lymphocytes # (1.0-4.8) k/uL Monocytes # (0-1.0) k/uL Eosinophils # (0-0.7) k/uL Basophils # (0-0.2) k/uL PT (9.0-12.0) sec INR (<1.1) APTT (22.0-30.0) sec Sodium (137-145) mmol/L Potassium (3.5-5.1) mmol/L Chloride (98-107) mmol/L Carbon Dioxide (22-30) mmol/L Anion Gap mmol/L BUN (7-17) mg/dL Creatinine (0.52-1.04) mg/dL Est GFR (MDRD) Af Amer (>60 ml/min/1.73 sqM) Est GFR (MDRD) Non-Af (>60 ml/min/1.73 sqM) Glucose (74-99) mg/dL Calcium (8.4-10.2) mg/dL Total Bilirubin (0.2-1.3) mg/dL AST (14-36) U/L ALT (9-52) U/L Alkaline Phosphatase (38-126) U/L Total Protein (6.3-8.2) g/dL Albumin (3.5-5.0) g/dL Amylase (30-110) U/L Lipase (23-300) U/L Urine Color Yellow Urine Appearance Cloudy H (Clear) Urine pH 6.0 (5.0-8.0) Ur Specific [place] 1.020 (1.001-1.035) Urine Protein 1+ H (Negative) Urine Glucose (UA) Negative (Negative) Urine Ketones 2+ H (Negative) Urine Blood Small H (Negative) Urine Nitrite Negative (Negative) Urine Bilirubin 1+ H (Negative) Urine Urobilinogen 2.0 (<2.0) mg/dL Ur Leukocyte Esterase Negative (Negative) Urine RBC 4 (0-5) /hpf Urine WBC 5 (0-5) /hpf Ur Squamous Epith Cells 30 H (0-4) /hpf Urine Bacteria Occasional H (None) /hpf Hyaline Casts 7 H (0-2) /lpf Urine Mucus Few H (None) /hpf - Radiology Data Radiology results: image reviewed (KUB shows no acute process) Disposition Clinical Impression: Nausea Disposition: HOME SELF-CARE Condition: Stable Instructions: Acute Nausea and Vomiting (ED) Additional Instructions: Please follow-up with primary care physician and surgeon beginning of the week. Dr. Bonilla asked that he do call her if you have any further problems. Return for pain, fevers, not tolerating fluids, worsening symptoms or other concerns. Prescriptions: Ondansetron Odt [Zofran Odt] 4 mg PO Q8HR PRN #10 tab PRN Reason: Nausea Referrals: Jan Cheek MD [Primary Care Provider] - 1-2 days Shirlene Bonilla DO [Doctor of Osteopathic Medicine] - 1-2 days Time of Disposition: 18:20
[2016-11-03 14:48] LABS: Basophils % (A) 0 %; CH 34.6; CHCM 37.1; Eosinophils # (A) 0.1 k/uL (0-0.7); Eosinophils % (A) 0 %; HCT 51.3 % (34.0-46.0); HDW 2.55; HGB 18.7 gm/dL (11.4-16.0); Luc # (Auto) 0.15; Luc % (Auto) 1; Lymphocytes # (A) 2.1 k/uL (1.0-4.8); Lymphocytes % (A) 17 %; MCH 34.1 pg (25.0-35.0); MCHC 36.5 g/dL (31.0-37.0); MCV 93.6 fL (80.0-100.0); Mean Platelet Volume 7.7; Monocytes # (A) 0.6 k/uL (0-1.0); Monocytes % (A) 5 %; Neutrophils # (A) 9.4 k/uL (1.3-7.7); Neutrophils % (A) 76 %; RBC 5.48 m/uL (3.80-5.40); RDW 13.6 % (11.5-15.5); WBC 12.4 k/uL (3.8-10.6); WBC (Perox) 12.07
--- NOTE | 2016-11-03 15:00 | XR ---
EXAMINATION TYPE: XR KUB DATE OF EXAM: 11/03/2016 COMPARISON: NONE HISTORY: Pain TECHNIQUE: Single supine KUB image of the abdomen is obtained FINDINGS: Small bowel demonstrates no evidence for dilatation or air fluid levels. Gas and fecal material is seen in non-distended colon. No convincing evidence for pneumoperitoneum. No unusual calcifications. The lung bases are clear. The osseous structures are intact. IMPRESSION: 1. Overall nonobstructive bowel gas pattern.
[2016-11-03 15:01] LABS: INR 1.2 (<1.1); Partial Thromboplastin Time 24.1 sec (22.0-30.0); Prothrombin Time 11.5 sec (9.0-12.0)
[2016-11-03 15:02] LABS: Calcium 10.5 mg/dL (8.4-10.2); Potassium 3.5 mmol/L (3.5-5.1); Total Bilirubin 1.4 mg/dL (0.2-1.3)
[2016-11-03 15:37] LABS: Appearance,Urine Cloudy (Clear); Bacteria,Urine Occasional /hpf; Bilirubin,Urine 1+ (Negative); Glucose,Urine (UA) Negative (Negative); Ketones,Urine 2+ (Negative); Leukocyte Esterase,Urine Negative (Negative); Mucus,Urine Few /hpf; Nitrite,Urine Negative (Negative); Particle Count 14762; Protein,Urine 1+ (Negative); RBC,Urine 4 /hpf (0-5); Squamous Epithelial Cell,Urine 30 /hpf (0-4); UA Billing (MACRO vs. MICRO) MICRO; WBC,Urine 5 /hpf (0-5)
[2016-11-03] MEDS ORDERED: METOCLOPRAMIDE 5 MG/ML 2 ML VIAL IVP STA (15:40)
[2016-11-03] MEDS ORDERED: LORazepam 2 MG/ML SYRINGE IV STA (16:35)
[2016-11-03] MEDS ORDERED: MECLIZINE 12.5 MG TAB PO STA (16:35)
[2016-11-03] MEDS ORDERED: SCOPOLAMINE 1.5MG/72HR PATCH TRANSDERM STA (16:36)
[2016-11-03 18:29] VITALS: BP 172/87; PULSE 75; RESP 18; TEMP 97.9
== END 2016-11-03 18:29 | disposition home or self-care (01) ==
LOC: EC 14:01
DX: R11.2 Nausea with vomiting, unspecified (principal); R10.9 Unspecified abdominal pain; R19.7 Diarrhea, unspecified; F17.200 Nicotine dependence, unspecified, uncomplicated; Z79.899 Other long term (current) drug therapy
CPT/HCPCS: 36415; 80053; 82150; 83690; 85025; 85610; 85730; 81001; 87086; 74000; 99284; 96374; 96375 ×3; 96361 ×4; J2060; J2765; J2405

== ENCOUNTER 2017-07-13 13:40 | Emergency (ER) | payer OTHER ==
[2017-07-13] MEDS ORDERED: SODIUM CHLORIDE 0.9% 500 ML IV STA (14:03)
[2017-07-13] MEDS ORDERED: ONDANSETRON 4 MG/2 ML VIAL IVP STA (14:03)
[2017-07-13] MEDS ORDERED: KETOROLAC 30 MG/ML 1 ML VIAL IVP STA (14:03)
--- NOTE | 2017-07-13 14:06 | ED ---
General Adult HPI - General Chief complaint: Abdominal Pain Stated complaint: abdominal pain/vomiting Time Seen by Provider: 07/13/17 13:45 Source: patient, RN notes reviewed Mode of arrival: wheelchair Limitations: no limitations - History of Present Illness Initial comments: This is a 46-year-old female who has a past medical history significant for cholecystectomy. Patient comes in today because just that she started having epigastric abdominal pain which is gotten progressively worse per patient states the pain is always there but has episodes where it is very severe and then it relaxes after about a minute. Patient states this morning she did vomit twice. He shouldn't denies any fevers or chills per patient denies any chest pain difficult breathing shortness of breath per patient denies any lower abdominal pain patient denies any vaginal discharge. Patient denies any dysuria hematuria urinary frequency. - Related Data Home Medications Medication Instructions Recorded Confirmed Cholecalciferol [Vitamin D3] 1,000 unit PO DAILY 10/30/16 07/13/17 Aspirin EC [Ecotrin Low Dose] 81 mg PO DAILY 07/13/17 07/13/17 Allergies Allergy/AdvReac Type Severity Reaction Status Date / Time No Known Allergies Allergy Verified 07/13/17 13:55 Review of Systems ROS Statement: Those systems with pertinent positive or pertinent negative responses have been documented in the HPI. ROS Other: All systems not noted in ROS Statement are negative. Past Medical History Past Medical History: No Reported History Additional Past Medical History / Comment(s): Restless leg syndrome History of Any Multi-Drug Resistant Organisms: None Reported Past Surgical History: Section, Cholecystectomy Additional Past Surgical History / Comment(s): c section x 3 Past Psychological History: No Psychological Hx Reported Smoking Status: Current every day smoker Past Alcohol Use History: Occasional Past Drug Use History: Marijuana - Past Family History Father Family Medical History: Hypertension Additional Family Medical History / Comment(s): Father is alive at age 69 with history of hypertension. Mother Additional Family Medical History / Comment(s): Mother at age 26 brain aneurysm. Brother(s) Additional Family Medical History / Comment(s): Patient has one brother with hypertension. Patient has 1 sister with no major medical problems. General Exam - General Exam Comments Initial Comments: GENERAL: Patient is well-developed and well-nourished. Patient is nontoxic and well- hydrated and is in no acute distress. ENT: Neck is soft and supple. No significant lymphadenopathy is noted. Oropharynx is clear. Moist mucous membranes. Neck has full range of motion without eliciting any pain. EYES: The sclera were anicteric and conjunctiva were pink and moist. Extraocular movements were intact and pupils were equal round and reactive to light. Eyelids were unremarkable. PULMONARY: Unlabored respirations. Good breath sounds bilaterally. No audible rales rhonchi or wheezing was noted. CARDIOVASCULAR: There is a regular rate and rhythm without any murmurs gallops or rubs. ABDOMEN: Patient has epigastric tenderness. No palpable organomegaly was noted. There is no palpable pulsatile mass. SKIN: Skin is clear with no lesions or rashes and otherwise unremarkable. NEUROLOGIC: Patient is alert and oriented x3. Cranial nerves II through XII are grossly intact. Motor and sensory are also intact. Normal speech, volume and content. Symmetrical smile. MUSCULOSKELETAL: Normal extremities with adequate strength and full range of motion. LYMPHATICS: No significant lymphadenopathy is noted PSYCHIATRIC: Normal psychiatric evaluation. Limitations: no limitations Course Vital Signs 07/13/17 13:42 Temperature 97.3 F L Pulse Rate 69 Respiratory 20 Rate Blood Pressure 138/71 O2 Sat by Pulse 100 Oximetry Medical Decision Making - Medical Decision Making I will back into reevaluate the patient patient was no longer having any pain and on palpation she was completely pain-free. No palpable masses or pulsatile masses can be felt. - Lab Data Result diagrams: 07/13/17 14:12 07/13/17 14:12 Lab Results 07/13/17 07/13/17 Range/Units 14:12 14:12 WBC 10.3 (3.8-10.6) k/uL RBC 4.29 (3.80-5.40) m/uL Hgb 14.2 (11.4-16.0) gm/dL Hct 41.3 (34.0-46.0) % MCV 96.3 (80.0-100.0) fL MCH 33.0 (25.0-35.0) pg MCHC 34.3 (31.0-37.0) g/dL RDW 12.8 (11.5-15.5) % Plt Count 233 (150-450) k/uL Neutrophils % 77 % Lymphocytes % 18 % Monocytes % 4 % Eosinophils % 1 % Basophils % 0 % Neutrophils # 8.0 H (1.3-7.7) k/uL Lymphocytes # 1.8 (1.0-4.8) k/uL Monocytes # 0.4 (0-1.0) k/uL Eosinophils # 0.1 (0-0.7) k/uL Basophils # 0.0 (0-0.2) k/uL Sodium 142 (137-145) mmol/L Potassium 4.0 (3.5-5.1) mmol/L Chloride 108 H (98-107) mmol/L Carbon Dioxide 24 (22-30) mmol/L Anion Gap 10 mmol/L BUN 14 (7-17) mg/dL Creatinine 0.84 (0.52-1.04) mg/dL Est GFR (CKD-EPI)AfAm >90 (>60 ml/min/1.73 sqM) Est GFR (CKD-EPI)NonAf 83 (>60 ml/min/1.73 sqM) Glucose 102 H (74-99) mg/dL Calcium 9.4 (8.4-10.2) mg/dL Total Bilirubin 0.3 (0.2-1.3) mg/dL AST 14 (14-36) U/L ALT 18 (9-52) U/L Alkaline Phosphatase 70 (38-126) U/L Total Protein 6.6 (6.3-8.2) g/dL Albumin 3.8 (3.5-5.0) g/dL Amylase 86 (30-110) U/L Lipase 72 (23-300) U/L Disposition Clinical Impression: Abdominal pain Disposition: HOME SELF-CARE Condition: Good Instructions: Abdominal Pain (ED) Additional Instructions: Patient should return if she is having new or worsening symptoms. Referrals: Jan Cheek MD [Primary Care Provider] - 1-2 days Time of Disposition: 15:16
[2017-07-13 14:28] LABS: Basophils % (A) 0 %; Eosinophils # (A) 0.1 k/uL (0-0.7); Eosinophils % (A) 1 %; HCT 41.3 % (34.0-46.0); HGB 14.2 gm/dL (11.4-16.0); Lymphocytes # (A) 1.8 k/uL (1.0-4.8); Lymphocytes % (A) 18 %; MCHC 34.3 g/dL (31.0-37.0); MCV 96.3 fL (80.0-100.0); Monocytes # (A) 0.4 k/uL (0-1.0); Monocytes % (A) 4 %; Neutrophils % (A) 77 %; Platelet Count 233 k/uL (150-450); RBC 4.29 m/uL (3.80-5.40); RDW 12.8 % (11.5-15.5); WBC 10.3 k/uL (3.8-10.6)
[2017-07-13 14:37] LABS: ALT 18 U/L (9-52); AST 14 U/L (14-36); Albumin 3.8 g/dL (3.5-5.0); Alkaline Phosphatase 70 U/L (38-126); Amylase 86 U/L (30-110); Anion Gap 10 mmol/L; Blood Urea Nitrogen 14 mg/dL (7-17); Calcium 9.4 mg/dL (8.4-10.2); Carbon Dioxide 24 mmol/L (22-30); Chloride 108 mmol/L (98-107); Glucose 102 mg/dL (74-99); Lipase 72 U/L (23-300); Sodium 142 mmol/L (137-145); Total Bilirubin 0.3 mg/dL (0.2-1.3); Total Protein 6.6 g/dL (6.3-8.2)
--- NOTE | 2017-07-13 14:51 | XR ---
EXAMINATION TYPE: XR KUB DATE OF EXAM: 07/13/2017 2:42 PM CLINICAL HISTORY: Abdominal pain TECHNIQUE: Single upright image of the abdomen is obtained. COMPARISON: 11/03/2016 FINDINGS: Scattered gas is seen in non-distended small bowel loops. Gas and fecal material is seen in non-distended colon. There is no visceromegaly, pneumoperitoneum, or abnormal calcification apprecia adelia. Cholecystectomy clips are noted within the right upper quadrant and a single lead at the L5 left transverse process. The lung bases are clear and the osseous structures are intact. IMPRESSION: Nonobstructive bowel gas pattern.
[2017-07-13 15:24] VITALS: BP 119/70; PULSE 66; RESP 18; TEMP 97.4
== END 2017-07-13 15:23 | disposition home or self-care (01) ==
LOC: EC 13:40
DX: R10.13 Epigastric pain (principal); R11.10 Vomiting, unspecified; F17.200 Nicotine dependence, unspecified, uncomplicated; Z79.82 Long term (current) use of aspirin; Z79.899 Other long term (current) drug therapy; Z90.49 Acquired absence of other specified parts of digestive tract
CPT/HCPCS: 36415; 80053; 82150; 83690; 85025; 74018; 99284; 96374; 96375; 96361; J2405; J1885

== ENCOUNTER 2022-09-04 21:25 | Emergency (ER) | payer OTHER ==
[2022-09-04 21:31] VITALS: BP 150/100; PULSE 84; RESP 16; TEMP 97.7
[2022-09-04] MEDS ORDERED: ACET/COD 300 MG/30 MG STARTER PACK 6 TAB BTL PO STA (21:48)
[2022-09-04] MEDS ORDERED: AMOXIC-POT CLAV 875-125MG 1 EACH TAB PO STA (21:48)
--- NOTE | 2022-09-04 21:48 | ED ---
ENT HPI - General Chief complaint: Dental/Oral Stated complaint: Impacted Tooth Time Seen by Provider: 09/04/22 21:33 Source: patient Mode of arrival: ambulatory Limitations: no limitations - History of Present Illness Initial comments: Patient is a 51-year-old female presenting with chief complaint of dental pain. Patient tells me that she has an impacted wisdom tooth on the left lower side. She has had increasing pain for several days. She follows with a dentist, she is currently having issues with insurance covering the procedure she requires. She is having no difficulty breathing or swallowing. No occult he handling secretions. No fevers or chills. No headache or neck pain. No vision or hearing changes. - Related Data Home Medications Medication Instructions Recorded Confirmed Cholecalciferol [Vitamin D3] 1,000 unit PO DAILY 10/30/16 07/13/17 Aspirin EC [Ecotrin Low Dose] 81 mg PO DAILY 07/13/17 07/13/17 Previous Rx's Medication Instructions Recorded Amoxic-Pot Clav 875-125Mg 1 tab PO BID 7 Days #14 tab 09/04/22 [Augmentin 875-125] Allergies Allergy/AdvReac Type Severity Reaction Status Date / Time No Known Allergies Allergy Verified 07/13/17 13:55 Review of Systems ROS Statement: Those systems with pertinent positive or pertinent negative responses have been documented in the HPI. ROS Other: All systems not noted in ROS Statement are negative. Past Medical History Past Medical History: CVA/TIA Additional Past Medical History / Comment(s): Restless leg syndrome History of Any Multi-Drug Resistant Organisms: None Reported Past Surgical History: Section, Cholecystectomy Additional Past Surgical History / Comment(s): c section x 3 Past Psychological History: No Psychological Hx Reported Past Alcohol Use History: Occasional Past Drug Use History: Marijuana - Past Family History Father Family Medical History: Hypertension Additional Family Medical History / Comment(s): Father is alive at age 69 with history of hypertension. Mother Additional Family Medical History / Comment(s): Mother at age 26 brain aneurysm. Brother(s) Additional Family Medical History / Comment(s): Patient has one brother with hypertension. Patient has 1 sister with no major medical problems. General Exam Limitations: no limitations General appearance: alert, in no apparent distress Head exam: Present: atraumatic, normocephalic, normal inspection Eye exam: Present: normal appearance, EOMI. Absent: scleral icterus, periorbital swelling Expanded Teeth exam: Present: other (Multiple missing teeth on the left lower side) Throat exam: normal inspection Neck exam: Present: normal inspection, full ROM, other (No brawny induration) Cardiovascular Exam: Present: regular rate, normal rhythm, normal heart sounds. Absent: systolic murmur, diastolic murmur, rubs, gallop, clicks GI/Abdominal exam: Present: soft, normal bowel sounds. Absent: distended, tenderness, guarding, rebound, rigid Neurological exam: Present: alert, oriented X3, CN II-XII intact Psychiatric exam: Present: normal affect, normal mood Skin exam: Present: warm, dry, intact, normal color. Absent: rash Course Vital Signs 09/04/22 21:28 Temperature 97.7 F Pulse Rate 84 Respiratory 16 Rate Blood Pressure 150/100 O2 Sat by Pulse 98 Oximetry Medical Decision Making - Medical Decision Making Was pt. sent in by a medical professional or institution (, PA, FUEL CELL ASSEMBLER, urgent care, hospital, or penitentiary...) When possible be specific @ -No Did you speak to anyone other than the patient for history (EMS, parent, family, police, friend...)? What history was obtained from this source @ -No Did you review nursing and triage notes (agree or disagree)? Why? @ -I reviewed and agree with nursing and triage notes Were old charts reviewed (outside hosp., previous admission, EMS record, old EKG, old radiological studies, urgent care reports/EKG's, penitentiary records)? Report findings @ -No old charts were reviewed Differential Diagnosis (chest pain, altered mental status, abdominal pain women, abdominal pain men, vaginal bleeding, weakness, fever, dyspnea, syncope, headache, dizziness, GI bleed, back pain, seizure, CVA, palpatations, mental health, musculoskeletal)? @ -Differential includes dental abscess, dental pain, [place] angina, this is not an all-inclusive list EKG interpreted by me (3pts min.). @ -As above X-rays interpreted by me (1pt min.). @ -None done CT interpreted by me (1pt min.). @ -None done U/S interpreted by me (1pt. min.). @ -None done What testing was considered but not performed or refused? (CT, X-rays, U/S, labs)? Why? @ -None What meds were considered but not given or refused? Why? @ -None Did you discuss the management of the patient with other professionals (professionals i.e. , PA, FUEL CELL ASSEMBLER, lab, RT, psych nurse, secondary social studies teacher, ux interaction designer, teacher, assault amphibious vehicle officer, director of casework services)? Give summary @ -No Was smoking cessation discussed for >3mins.? @ -No Was critical care preformed (if so, how long)? @ -No Were there social determinants of health that impacted care today? How? (Homelessness, low income, unemployed, alcoholism, drug addiction, transportation, low edu. Level, literacy, decrease access to med. care, assisted, rehab)? @ -No Was there de-escalation of care discussed even if they declined (Discuss DNR or withdrawal of care, Hospice)? DNR status @ -No What co-morbidities impacted this encounter? (DM, HTN, Smoking, COPD, CAD, Cancer, CVA, ARF, Chemo, Hep., AIDS, mental health diagnosis, sleep apnea, morbid obesity)? @ -None Was patient admitted / discharged? Hospital course, mention meds given and route, prescriptions, significant lab abnormalities, going to OR and other pertinent info. @ -Discharge. Patient is a 51-year-old female with history of impacted wisdom tooth presenting with chief complaint of dental pain and facial swelling. On physical examination there is no brawny induration. There are multiple missing teeth on the left lower side. Patient is having no difficulty breathing or swallowing. No fevers or chills. Vital signs WNL. Patient is started on Augmentin and instructed to follow-up with her dentist. Follow-up with PCP. Report back to ER with any new or worsening symptoms. Discussed return parameters and answered all questions. Patient conveyed verbal understanding and agreed to the plan. I discussed this case in detail with my attending Dr. Doshi Undiagnosed new problem with uncertain prognosis? @ -No Drug Therapy requiring intensive monitoring for toxicity (Heparin, Nitro, Insulin, Cardizem)? @ -No Were any procedures done? @ -No Diagnosis/symptom? @ -Dental abscess Acute, or Chronic, or Acute on Chronic? @ -Acute Uncomplicated (without systemic symptoms) or Complicated (systemic symptoms)? @ -Uncomplicated Side effects of treatment? @ -No Exacerbation, Progression, or Severe Exacerbation? @ -No Poses a threat to life or bodily function? How? (Chest pain, [place], CA, pneumonia, PE, COPD, DKA, ARF, appy, cholecystitis, CVA, Diverticulitis, Homicidal, Suicidal, threat to staff... and all critical care pts) @ -No Disposition Clinical Impression: Dental abscess Disposition: HOME SELF-CARE Condition: Good Instructions (If sedation given, give patient instructions): Dental Abscess (E D) Additional Instructions: Follow-up with your dentist. Report back to ER with any new or worsening symptoms. Take medication as prescribed. Take Motrin and Tylenol as needed for pain control. Use warm compresses as needed. Prescriptions: Amoxic-Pot Clav 875-125Mg [Augmentin 875-125] 1 tab PO BID 7 Days #14 tab Is patient prescribed a controlled substance at d/c from ED?: No Referrals: Jan Cheek MD [Primary Care Provider] - 1-2 days Time of Disposition: 21:48
== END 2022-09-04 22:00 | disposition home or self-care (01) ==
LOC: EC 21:25
DX: K04.7 Periapical abscess without sinus (principal); F12.90 Cannabis use, unspecified, uncomplicated; Z79.82 Long term (current) use of aspirin; Z86.73 Personal history of transient ischemic attack (TIA), and cerebral infarction without residual deficits
CPT/HCPCS: 99282

== ENCOUNTER 2023-12-27 12:45 | Emergency (ER) | payer OTHER ==
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
== END 2023-12-27 15:45 | disposition home or self-care (01) ==
LOC: EC 12:45
DX: R55 Syncope and collapse (principal)
CPT/HCPCS: 71046; 72170; 99284